=== PATIENT | female | born 1940 | race Caucasian/White ===

== ENCOUNTER 2018-07-09 18:19 | Emergency (ER) | payer OTHER, MEDICARE ==
--- NOTE | 2018-07-09 18:41 | PDOC ---
Rapid Medical Evaluation Chief Complaint: Pain Time Seen by Provider: 07/09/18 18:40 Medical Evaluation: Allergies Allergy/AdvReac Type Severity Reaction Status Date / Time Penicillins Allergy Rash Verified 07/09/18 18:39 Sulfa (Sulfonamide Allergy Rash Verified 07/09/18 18:39 Antibiotics) 10 18:40 The patient presents with a chief complaint of: abd pain I have performed a brief in-person evaluation of this patient. Pertinent physical exam findings: vss, I have ordered the following: labs, npo The patient will proceed to the ED for further evaluation. Discharge Disposition - Referrals Referrals: Paras Arrington MD [Primary Care Provider] - - Patient Instructions - Post Discharge Activity
[2018-07-09 18:42] VITALS: BP 195/88; PULSE 78; TEMP 98.5; BMI 19.3
[2018-07-09 19:56] LABS: BASO % 1.2 % (0-2.0); HEMOGLOBIN 12.3 GM/dL (10.7-15.3); LYMPH % 21.7 % (8-40); MCH 30.2 pg (25.7-33.7); MCHC 33.2 g/dl (32.0-36.0); MONO % 11.6 % (3.8-10.2); NEUT % 63.5 % (42.8-82.8); PLATELET COUNT 298 K/MM3 (134-434); RBC 4.06 M/mm3 (3.60-5.2); RDW 14.1 % (11.6-15.6); WHITE BLOOD COUNT 3.7 K/mm3 (4.0-10.0)
[2018-07-09 20:26] LABS: URINE APPEARANCE CLEAR; URINE BILIRUBIN NEGATIVE (<2.0 mg/dL); URINE COLOR LTYELLOW; URINE GLUCOSE (UA) NEGATIVE (NEGATIVE); URINE KETONE TRACE (NEGATIVE); URINE LEUK ESTERASE NEGATIVE (NEGATIVE); URINE NITRITE NEGATIVE (NEGATIVE); URINE PROTEIN NEGATIVE (NEGATIVE); URINE UROBILINOGEN NEGATIVE mg/dL (0.2-1.0)
[2018-07-09 20:31] LABS: ALBUMIN 3.9 g/dl (3.4-5.0); ALK PHOS 42 U/L (45-117); ANION GAP 9 MMOL/L (8-16); BILIRUBIN,TOTAL 0.4 mg/dL (0.2-1); BLOOD UREA NITROGEN 13 mg/dL (7-18); CALCIUM 9.6 mg/dL (8.5-10.1); CHLORIDE 105 mmol/L (98-107); CO2 26 mmol/L (21-32); CREATININE 0.5 mg/dL (0.55-1.3); GLUCOSE,RANDOM 90 mg/dL (74-106); LIPASE 256 U/L (73-393); POTASSIUM 3.8 mmol/L (3.5-5.1); SGOT/AST 21 U/L (15-37); SGPT/ALT 23 U/L (13-61); SODIUM 140 mmol/L (136-145); TOT PROT 6.7 g/dl (6.4-8.2)
--- NOTE | 2018-07-09 22:58 | PDOC ---
History of Present Illness - General History Source: Patient, Family Exam Limitations: No Limitations - History of Present Illness Initial Comments: 07/09/18 23:27 The patient is a 77 year old female, with a significant past medical history of hysterectomy, appendectomy, pancreatic cysts s/p biopsy, who presents to the emergency department with suprapubic abdominal pain for about a week. She states the pain is localized to the suprapubic region without radiation. She states she noticed a sharp pain while sitting today which is different from the intermittent aching she has been experiencing for the past week. She states she notices increased pain with walking, however, states it doesnt happen all the time. She reports a normal bowel movement within the past 24 hours. The patient denies chest pain, shortness of breath, headache and dizziness. The patient denies fever, chills, nausea, vomit, diarrhea and constipation. The patient denies dysuria, frequency, urgency and hematuria. Allergies: penicillins, Sulfa PCP: Dr. Arrington GI: Dr. Humphries <Pati Frye - Last Filed: 07/09/18 23:27> <Joie Mckee - Last Filed: 07/10/18 01:22> - General Chief Complaint: Pain Stated Complaint: ABD PAIN Time Seen by Provider: 07/09/18 18:40 Past History <Pati Frye - Last Filed: 07/09/18 23:27> - Past Medical History COPD: No Thyroid Disease: Yes - Surgical History Appendectomy: Yes - Immunization History Immunization Up to Date: Yes - Suicide/Smoking/Psychosocial Hx Smoking History: Never smoked Hx Alcohol Use: No Drug/Substance Use Hx: No <Joie Mckee - Last Filed: 07/10/18 01:22> - Past Medical History Allergies/Adverse Reactions: Allergies Allergy/AdvReac Type Severity Reaction Status Date / Time Penicillins Allergy Rash Verified 07/09/18 22:37 Sulfa (Sulfonamide Allergy Rash Verified 07/09/18 22:37 Antibiotics) Home Medications: Ambulatory Orders Latanoprost/Pf [Latanoprost 0.005% Eye Drop] 7.5 ml OP DAILY 07/09/18 Levothyroxine Sodium [Synthroid] 88 mcg PO DAILY 07/09/18 Review of Systems - Review of Systems Able to Perform ROS?: Yes Comments:: 07/09/18 23:27 CONSTITUTIONAL: Absent: fever, chills, diaphoresis, generalized weakness, malaise, loss of appetite HEENT: Absent: rhinorrhea, nasal congestion, throat pain, throat swelling, difficulty swallowing, mouth swelling, ear pain, eye pain, visual Changes CARDIOVASCULAR: Absent: chest pain, syncope, palpitations, irregular heart rate, lightheadedness , peripheral edema RESPIRATORY: Absent: cough, shortness of breath, dyspnea with exertion, orthopnea, wheezing, stridor, hemoptysis GASTROINTESTINAL: (+) suprapubic abdominal pain. Absent: abdominal distension, nausea, vomiting, diarrhea, constipation, melena, hematochezia GENITOURINARY: Absent: dysuria, frequency, urgency, hesitancy, hematuria, flank pain, genital pain MUSCULOSKELETAL: Absent: myalgia, arthralgia, joint swelling SKIN: Absent: rash, itching, pallor HEMATOLOGIC/IMMUNOLOGIC: Absent: easy bleeding, easy bruising, lymphadenopathy, frequent infections ENDOCRINE: Absent: unexplained weight gain, unexplained weight loss, heat intolerance, cold intolerance NEUROLOGIC: Absent: headache, focal weakness or paresthesias, dizziness, unsteady gait, seizure, mental status changes, bladder or bowel incontinence PSYCHIATRIC: Absent: anxiety, depression, suicidal or homicidal ideation, hallucinations. <Pati Frye - Last Filed: 07/09/18 23:27> *Physical Exam - Vital Signs Last Vital Signs Temp Pulse Resp BP Pulse Ox 98.5 F 78 18 195/88 H 98 07/09/18 18:39 07/09/18 18:39 07/09/18 18:39 07/09/18 18:39 07/09/18 18:39 - Physical Exam Comments: 07/09/18 23:28 GENERAL: Well developed, well nourished. Awake and alert. No acute distress. HEENT: Normocephalic, atraumatic. PERRLA, EOMI. No conjunctival pallor. Sclera are non- icteric. Moist mucous membranes. Oropharynx is clear. NECK: Supple. Full ROM. No JVD. Carotid pulses 2+ and symmetric, without bruits. No thyromegaly. No lymphadenopathy. CARDIOVASCULAR: Regular rate and rhythm. No murmurs, rubs, or gallops. Distal pulses are 2+ and symmetric. PULMONARY: No evidence of respiratory distress. Lungs clear to auscultation bilaterally. No wheezing, rales or rhonchi. ABDOMINAL: (+) mild L and R suprapubic tenderness. Soft. Non-distended. No rebound or guarding. No organomegaly. Normoactive bowel sounds. MUSCULOSKELETAL Normal range of motion at all joints. No bony deformities or tenderness. No CVA tenderness. EXTREMITIES: No cyanosis. No clubbing. No edema. No calf tenderness. SKIN: Warm and dry. Normal capillary refill. No rashes. No jaundice. NEUROLOGICAL: Alert, awake, appropriate. Cranial nerves 2-12 intact. Normoreflexic in the upper and lower extremities. Normal speech. Toes are down-going bilaterally. Gait is normal without ataxia. PSYCHIATRIC: Cooperative. Good eye contact. Appropriate mood and affect. <Pati Frye - Last Filed: 07/09/18 23:27> - Vital Signs Last Vital Signs Temp Pulse Resp BP Pulse Ox 98.5 F 78 18 195/88 H 98 07/09/18 18:39 07/09/18 18:39 07/09/18 18:39 07/09/18 18:39 07/09/18 18:39 <Joie Mckee - Last Filed: 07/10/18 01:22> ED Treatment Course - LABORATORY CBC & Chemistry Diagram: 07/09/18 19:49 07/09/18 19:49 - ADDITIONAL ORDERS Additional order review: Laboratory Results 07/09/18 07/09/18 20:02 19:49 Sodium 140 Potassium 3.8 Chloride 105 Carbon Dioxide 26 Anion Gap 9 BUN 13 Creatinine 0.5 L Creat Clearance w eGFR > 60 Random Glucose 90 Calcium 9.6 Total Bilirubin 0.4 AST 21 ALT 23 Alkaline Phosphatase 42 L Total Protein 6.7 Albumin 3.9 Lipase 256 Urine Color Ltyellow Urine Appearance Clear Urine pH 5.0 Ur Specific [place] 1.010 Urine Protein Negative Urine Glucose (UA) Negative Urine Ketones Trace H Urine Blood Negative Urine Nitrite Negative Urine Bilirubin Negative Urine Urobilinogen Negative Ur Leukocyte Esterase Negative 07/09/18 19:49 RBC 4.06 MCV 91.0 MCHC 33.2 RDW 14.1 MPV 9.0 Neutrophils % 63.5 Lymphocytes % 21.7 Monocytes % 11.6 H Eosinophils % 2.0 Basophils % 1.2 <Pati Frye - Last Filed: 07/09/18 23:27> - LABORATORY CBC & Chemistry Diagram: 07/09/18 19:49 07/09/18 19:49 - ADDITIONAL ORDERS Additional order review: Laboratory Results 07/09/18 07/09/18 20:02 19:49 Sodium 140 Potassium 3.8 Chloride 105 Carbon Dioxide 26 Anion Gap 9 BUN 13 Creatinine 0.5 L Creat Clearance w eGFR > 60 Random Glucose 90 Calcium 9.6 Total Bilirubin 0.4 AST 21 ALT 23 Alkaline Phosphatase 42 L Total Protein 6.7 Albumin 3.9 Lipase 256 Urine Color Ltyellow Urine Appearance Clear Urine pH 5.0 Ur Specific [place] 1.010 Urine Protein Negative Urine Glucose (UA) Negative Urine Ketones Trace H Urine Blood Negative Urine Nitrite Negative Urine Bilirubin Negative Urine Urobilinogen Negative Ur Leukocyte Esterase Negative 07/09/18 19:49 RBC 4.06 MCV 91.0 MCHC 33.2 RDW 14.1 MPV 9.0 Neutrophils % 63.5 Lymphocytes % 21.7 Monocytes % 11.6 H Eosinophils % 2.0 Basophils % 1.2 <Joie Mckee - Last Filed: 07/10/18 01:22> Medical Decision Making - Medical Decision Making 07/10/18 01:18 77-year-old female presented with her because over the last few days she has developed suprapubic and bilateral lower abdominal cramping -She is concerned because on June 20. She had a pancreatic cyst biopsy. Patient does not have nausea or vomiting or fever or chills or diarrhea Past surgical history significant for complete hysterectomy and appendectomy. The urinalysis was negative. Her CBC did not show any anemia or leukocytosis Her chemistries were reviewed and all her electrolytes were within normal limits as were her liver function tests and her renal function. Glucose was normal Patient denied any history of recent trauma. She did not have any CVA tenderness. She was able to have regular bowel movements and urinate without discomfort She denied any diaphoresis or chest pain or lightheadedness or dizziness E stools. I spoke to her and said that I could offer her imaging study CAT scan with contrast in case she should have an atypical presentation of diverticulitis, but she said she just had significant amounts of radiation and refused any imaging studies this evening. Her vital signs were stable. She does have an appointment already this week on with a soloist dancer, Dr. Aj Humphries I told her that she should have worsening symptoms, develop back pain or fever or vomiting to return to the emergency department. Impression lower abdominal pain. Plan she has an appointment already on to see her soloist dancer <Joie Mckee - Last Filed: 07/10/18 01:22> *DC/Admit/Observation/Transfer - Attestations Scribe Attestion: 07/09/18 23:28 Documentation prepared by Pati Frye, acting as emergency medical technician/driver for Joie Mckee MD <Pati Frye - Last Filed: 07/09/18 23:27> <Joie Mckee - Last Filed: 07/10/18 01:22> Diagnosis at time of Disposition: Abdominal pain Qualifiers: Abdominal location: generalized Qualified Code(s): R10.84 - Generalized abdominal pain - Discharge Dispostion Disposition: HOME Condition at time of disposition: Stable - Referrals Referrals: Paras Arrington MD [Primary Care Provider] - Aj Humphries MD [Staff Physician] - - Patient Instructions Printed Discharge Instructions: DI for Abdominal Pain-Adult Additional Instructions: keep your appointment with the soloist dancer this week - Post Discharge Activity
== END 2018-07-09 23:20 | disposition home or self-care (01) ==
LOC: JER 18:19
DX: R10.9 Unspecified abdominal pain (principal); Z88.0 Allergy status to penicillin; Z88.2 Allergy status to sulfonamides; Z90.49 Acquired absence of other specified parts of digestive tract; E07.9 Disorder of thyroid, unspecified
CPT/HCPCS: 36415; 80053; 81003; 83690; 85025; 99283-25